=== PATIENT | female | born 1945 | race Caucasian/White ===

== ENCOUNTER → 2019-11-21 12:35 | Outpatient (BNVA) | payer MEDICARE, SELFPAY | PROVIDERS: Family Provider Family Medicine; PCP Family Medicine; Visit Provider Internal Medicine Cardiovascular Disease | DX: R53.83 Other fatigue (principal); Z79.01 Long term (current) use of anticoagulants; E78.5 Hyperlipidemia, unspecified; R06.02 Shortness of breath; I35.0 Nonrheumatic aortic (valve) stenosis; R07.9 Chest pain, unspecified; M79.89 Other specified soft tissue disorders; I10 Essential (primary) hypertension | CPT/HCPCS: 80053; 80061; 84443; 85025 ==

== ENCOUNTER 2019-12-07 08:06 | Outpatient (CLI) | payer MEDICARE, SELFPAY ==
--- NOTE | 2019-12-07 08:51 | ECG_ITS ---
NAME OF STUDY: LEXISCAN SESTAMIBI STRESS TEST INDICATION: Chest Pain, PROCEDURE: At the baseline, the EKG revealed sinus bradycardia with a normal ST-T's. The baseline blood pressure was 148/84 mm Hg with a heart rate of 57 beats/min. Lexiscan was infused over a period of 20 seconds. A total of 0.4 milligrams of Lexiscan was infused. The stress phase was continued for a total of 5 minutes. Heart rate at the end of the stress phase was 74 with a blood pressure 129/62. The EKG at the peak infusion revealed no significant changes. Sestamibi was injected 20 seconds after the Lexiscan infusion. Blood pressure at the end of the recovery phase was 127/58 with a heart rate of 71 per minute. CONCLUSION: 1. No significant EKG changes with the LexiScan infusion 2. No LexiScan induced chest pain or cardiac arrhythmia 3. Normal blood pressure and heart rate response 4. Sestamibi/sestamibi perfusion scan pending; see separate report. Electronically Signed On 12-07-2019 19:56:15 CDT by Kesha Hernandez M.D. [email or web address]
[2019-12-07 08:52] VITALS: BMI 30.7
--- NOTE | 2019-12-07 08:52 | NMCV_ITS ---
NM eleazar perf SPECT r/s* [id number] Rosa Reyes Age: 74 Gender: F : 1945 Exam Date: 12/07/2019 09:32 Ordering Phys: Kesha Hernandez MD ([email or web address]) Technologist: KIT Vail Exam Location: [facility] Indications: SOB STRESS TEST Please [facility] for [facility] IMAGE PROTOCOL Rest/Stress 1 Lexiscan Day Radiopharmaceutical Dose (mCi) Administration Site Administered by Rest: Tc-99m 10.7 IV KIT Vail Sestamibi Stress:Tc-99m 32.0 IV KIT Lorenzo Sestamibi Rest: 07-Dec-2019 60 Discovery 630 Stress: 07-Dec-2019 30 Discovery 630 0.4mg Lexiscan. Supine position only as patient was unable to lay prone. SPECT RESULTS Technical Quality: Excellent Raw Data Analysis: Normal Image Corrections: No attenuation or motion correction applied Summed Stress Score: 9 Summed Rest Score: 2 Summed Difference Score: 8 PERFUSION FINDINGS Small to moderate area of decreased asymmetry was noted in the mid and apical inferior, mid inferolateral, apical lateral and LV apex. Significant reversibility was noted in these regions. FUNCTIONAL RESULTS (calculated via Gated SPECT) Stress Image LV EF (%): 74 Stress EDV (mL):81 TID: 0.96 Stress ESV (mL):21 FUNCTIONAL FINDINGS: Segmental wall motion analysis revealed no gross wall motion normalities IMPRESSIONS 1. Myocardial perfusion imaging revealing a small to moderate area of decreased tracer uptake in the mid and apical inferior, mid inferolateral and apical lateral region, with significant reversibility, suggestive of myocardial ischemia in the distribution of the left circumflex artery/right coronary artery. 2. Normal LV ejection fraction 74%. 3. LV wall motion analysis revealing no gross wall motion normalities. 4. Normal LV volume. No similar previous studies are available for comparison Dr Kesha Hernandez MD FACC (Electronically Signed) Final Date: 07 Dec 2019 18:16 S
[2019-12-07] MEDS: regadenoson 0.4 Mg/5 ml Syringe IVP (10:15)
[2019-12-07 10:18] VITALS: BP 133/64; PULSE 79
--- NOTE | 2019-12-07 12:30 | USCV_ITS ---
Rosa Reyes Age: 74 Gender: F : 1945 Exam Date: 12/07/2019 09:03 Ordering Phys: Kesha Hernandez MD ([email or web address]) Technologist: Brittani Ku [place] [facility] [place]: [place] BP: / HR: 56 Rhythm: Sinus Technical Quality: Adequate MEASUREMENTS (Male / Female) Normal Values 2D ECHO LV Diastolic Diameter PLAX 4.5 cm 4.2 - 5.9 / 3.9 - 5.3 cm LV Systolic Diameter PLAX 3.1 cm LV Chamber Size 3.6 cm IVS Diastolic Thickness 1.4 cm 0.6 - 1.0 / 0.6 - 0.9 cm IVS Systolic Thickness 1.6 cm LVPW Diastolic Thickness 1.2 cm 0.6 - 1.0 / 0.6 - 0.9 cm LVPW Systolic Thickness 1.7 cm RV Chamber Size 2.4 cm LVOT Diameter 2.0 cm LV Ejection Fraction 2D Teich 60.5 % LV Ejection Fraction MOD 2C 75.7 % LV Ejection Fraction 2C AL 75.7 % LA Diameter 3.6 cm LA Width 3.1 cm LA Height 3.4 cm RA Width 3.2 cm RA Height 3.5 cm Aorta at Sinotubular Diameter 2.9 cm M-MODE LV Diastolic Diameter MM 5.4 cm 4.2 - 5.9 / 3.9 - 5.3 cm LV Systolic Diameter MM 3.5 cm LV Ejection Fraction MM Teich 64.7 % IVS Diastolic Thickness MM 0.9 cm 0.6 - 1.0 / 0.6 - 0.9 cm IVS Systolic Thickness MM 1.6 cm LVPW Diastolic Thickness MM 0.8 cm 0.6 - 1.0 / 0.6 - 0.9 cm LVPW Systolic Thickness MM 2.4 cm RV Diastolic Diameter MM 1.5 cm Aortic Annulus Diameter 3.6 cm LA Ao Ratio MM 1.0 MV E Point Septal Separation 0.7 cm DOPPLER AV Peak Velocity 136.0 cm/s LVOT Peak Velocity 59.0 cm/s AV Area Cont Eq vti 1.4 cm squared AV Area Cont Eq pk 1.4 cm squared MV Area PHT 5.4 cm squared Mitral E to A Ratio 0.9 MV E' Velocity 7.0 cm/s Mitral E to MV E' Ratio 8.9 Mitral E to LV E' Lateral Ratio 11.6 Mitral E to LV E' Septal Ratio 7.3 TR Peak Velocity 297.1 cm/s TR Peak Gradient 35.3 mmHg TR Mean Velocity 192.0 cm/s TR Mean Gradient 16.8 mmHg TR Velocity Time Integral 72.8 cm TV Peak E Velocity 60.0 cm/s Right Atrial Pressure 3.0 mmHg Pulmonary Artery Systolic Pressu 38.3 mmHg PV Peak Velocity 59.0 cm/s RV Acceleration Time 0.1 s RV Ejection Time 0.4 s RV AcT/ET 0.4 FINDINGS Left Ventricle Normal left ventricular size and systolic function, EF 67 %. No regional wall motion abnormalities.Grade I/IV diastolic dysfunction (abnormal relaxation filling pattern), normal to mildly elevated filling pressures. Right Ventricle Normal right ventricular size and systolic function. Right Atrium Normal right atrial size. Left Atrium Mildly increased left atrial size. Mitral Valve Thickened mitral valve. Mild mitral valve regurgitation. Aortic Valve Thickened aortic valve. Tricuspid Valve Mild tricuspid valve regurgitation. Pulmonic Valve Pulmonic valve not well visualized. Pericardium No pericardial or pleural effusion. Aorta Normal aortic annulus size. CONCLUSIONS Normal left ventricular size and systolic function, EF 67 %. No regional wall motion abnormalities. Mildly increased left atrial size. Thickened aortic and mitral valves. Mild mitral valve regurgitation. Mild tricuspid valve regurgitation. Estimated pulmonary artery peak systolic pressure is 38 mmHg There is no pericardial effusion. There are no intracardiac masses. Compared to the previous study from 08/26/2016, there may not be a significant Dr Kesha Hernandez MD FACC (Electronically Signed) Final Date: 07 Dec 2019 19:42 S
== END 2019-12-07 08:07 | disposition home or self-care (01) ==
LOC: RAD 08:12
PROVIDERS: PCP Family Medicine; Visit Provider Internal Medicine Cardiovascular Disease
DX: R06.02 Shortness of breath (principal); R01.1 Cardiac murmur, unspecified; I08.3 Combined rheumatic disorders of mitral, aortic and tricuspid valves
CPT/HCPCS: 78452; 93017; 93306; A9500; J2785

== ENCOUNTER 2020-02-01 15:11 | Outpatient (CLI) | payer MEDICARE, SELFPAY ==
--- NOTE | 2020-02-01 15:30 | MM_ITS ---
WS: [id number] DIAGNOSTIC LEFT DIGITAL MAMMOGRAM WITH CAD HISTORY: HX RT BR CA, LT UNILATERAL mammogram COMPARISON: 01/05/2019, 12/21/2017 and 12/19/2015 Technique: CC, MLO and ML views. Breast composition: There are scattered areas of fibroglandular density. Nodule inferior and medial to the nipple slightly lobulated and of increased density measures 14 mm and stable over multiple lorrie or years. No retraction of the nipple. Stable calcification posterior to the nipple. MM/[place] [id number] IMPRESSION: BI-RADS: 2-Benign FOLLOW UP: 1 Year Follow-up
--- NOTE | 2020-02-01 16:09 | XR_ITS ---
WS: [id number] SCREENING DEXA SCAN Fluo[employer]ric CLINICAL INFORMATION: DEXA COMPARISON: FINDINGS: The L1-L4 bone mineral density measures 1.074 g/cm2. This corresponds to a T score score of -0.9 and Z score of 0.3. Left femoral neck bone mineral density measures 0.921 g/cm2. This corresponds to a T score of -0.7 an d Z score of 0.6. Right femoral neck bone mineral density measures 0.856 g/cm2. This corresponds to a T score -1.2of an d Z score of 0.1. Mean femoral neck bone mineral density measures 0.889 g/cm2. This corresponds to a T score of -0.9 an d Z score of 0.3. XR/XR DEXA axial skeleton* [id number] IMPRESSION: Osteopenia Patient's FRAX calculated 10 year probability for major osteoporotic fracture i s 27.7 % and osteoporotic hip fracture is 16.0%.
== END 2020-02-01 15:12 | disposition home or self-care (01) ==
LOC: RADSHAW 15:18
PROVIDERS: PCP Family Medicine; Visit Provider Family Medicine
DX: Z78.0 Asymptomatic menopausal state; M85.88 Other specified disorders of bone density and structure, other site; Z85.3 Personal history of malignant neoplasm of breast
CPT/HCPCS: 77065; 77080

== ENCOUNTER 2020-09-07 13:14 | Emergency (ER) | payer MEDICARE, SELFPAY ==
[2020-09-07 13:34] VITALS: BP 154/100; PULSE 71; RESP 18; TEMP 36.5; O2SAT 97; BMI 31.6
[2020-09-07 13:45] VITALS: BP 201/86; PULSE 68; RESP 11; O2SAT 97
[2020-09-07 14:03] LABS: Glucose Point of Care 87 mg/dL (70-110)
[2020-09-07 14:12] VITALS: BP 201/86; PULSE 67; RESP 21; O2SAT 96
--- NOTE | 2020-09-07 14:28 | CTR_ITS ---
PROCEDURE INFORMATION: Exam: CT Head Without Contrast Exam date and time: 09/07/2020 2:31 PM Age: 75 years old Clinical indication: Altered mental status/memory loss. Confusion or disorientation. Worsening confusion and memory loss for 1 week. TECHNIQUE: Imaging protocol: Computed tomography of the head without contrast. Radiation optimization: All CT scans at this facility use at least one of these dose optimization techniques: automated exposure control; mA and/or kV adjustment per patient size (includes targeted exams where dose is matched to clinical indication); or iterative reconstruction. COMPARISON: CT head wo con* [id number] 08/19/2018 1:26 PM RADIATION DOSE METRICS: Total DLP (mGy-cm): 858.47 FINDINGS: Brain: No acute intracranial hemorrhage. No mass, mass effect or midline shift. There is no evidence of acute large vessel infarct. There is mild presumed small vessel ischemic disease of indeterminate age. The posterior fossa is grossly unremarkable; however, it is partially obscurred by beam hardening artifact. Cerebral ventricles: The ventricles are normal in configuration. Bones/joints: No acute fracture is seen. Paranasal sinuses: There are retention cysts or polyps in the right sphenoid and right ethmoid sinuses. Mastoid air cells: No mastoid effusion. Orbital cavity: The visualized orbits are unremarkable. CT/CT head wo con* [id number] IMPRESSION: 1. No acute intracranial abnormality. 2. Mild presumed small vessel ischemic disease of indeterminate age. Radiation Dose CTDIVOL = (mGy): DLP = 858.47 (mGy-cm)
--- NOTE | 2020-09-07 14:28 | XRR_ITS ---
PROCEDURE INFORMATION: Exam: XR Chest Exam date and time: 09/07/2020 2:29 PM Age: 75 years old Clinical indication: Altered mental status. Syncope. TECHNIQUE: Imaging protocol: XR of the chest Views: 1 view. COMPARISON: CR Chest 1 [place] [id number] 08/19/2018 1:02 PM FINDINGS: Lungs: No pulmonary consolidation. Pleural spaces: No pleural effusion. No pneumothorax. Heart/Mediastinum: The cardiac silhouette is unchanged. No gross evidence of pneumomediastinum. Bones/joints: No gross fracture. Probable ossified intra-articular body in the right glenohumeral joint. XR/XR chest 1V portable [id number] IMPRESSION: No acute cardiopulmonary abnormality identified.
--- NOTE | 2020-09-07 14:29 | ECG_ITS ---
[facility] Test Date: 2020-09-07 Pat Name: Rosa Reyes Department: Room: Gender: Female [employer] Risk Analytics Manager: : 1945 Requested By: Janeth Suazo Order Number: [id number] Noé MD: Joaquín Armas M.D. Measurements Intervals [place] Rate: 69 P: 48 AL: 152 QRS: -18 QRSD: 88 T: 20 QT: 390 QTc: 419 Interpretive Statements SINUS RHYTHM MODERATE VOLTAGE CRITERIA FOR LVH, CONSIDER NORMAL VARIANT [MEETS CRITERIA IN ONE OF: R(aVL), S(V1), R(V5), R(V5/V6)+S(V1)] Compared to ECG 08/19/2018 13:39:48 No significant changes Electronically Signed On 09-08-2020 17:11:10 CHIEF INFORMATION OFFICER by Joaquín Armas M.D. [id number]
[2020-09-07 14:54] LABS: Basophils % 0.4 %; Eosinophils % 0.6 %; Hematocrit 44.4 % (37.0-47.0); Hemoglobin 14.7 g/dL (11.5-15.3); Lymphocytes # 1.4 10^3/uL (0.8-4.8); Lymphocytes % 29.5 %; Mean Corpuscular HGB Conc 33.1 g/dL (30.0-36.0); Mean Corpuscular Hemoglobin 31.1 pg (28.0-34.0); Mean Corpuscular Volume 94.1 fL (81-99); Mean Platelet Volume 10.7 fL (7.4-10.4); Monocytes # 0.4 10^3/uL (0.2-0.9); Monocytes % 9.4 %; Neutrophils % 59.9 %; Nucleated Red Blood Cells % 0 %; Platelet Count 236 10^3/cmm (130-400); Red Blood Count 4.72 10^6/uL (4.1-5.3); Red Cell Distribution Width 13.3 % (12.1-15.1); White Blood Count 4.7 10^3/uL (4.0-10.0)
[2020-09-07 15:01] LABS: Troponin(5th) Baseline 12 ng/L (0-10)
--- NOTE | 2020-09-07 15:28 | W.ED.AMS ---
HPI - Altered Mental Status General: Chief Complaint: Altered Mental Status Stated Complaint: CONFUSION Time Seen by Provider: 09/07/20 14:40 Source: patient and family Mode of arrival: ambulatory Limitations: no limitations History of Present Illness: HPI narrative: 75-year-old female had an episode of chest chest pressure followed by nausea and vomiting several times this morning around 11 AM. No associated shortness of breath or palpitations she took 3 chewable aspirins at the onset of the chest pain. At 1 PM she had trouble remembering where one of her family members lived, even though it somewhere she goes frequently. Family members had to remind her of the address. Currently she is denying any such memory difficulties. No headache. No vision change, dizziness, focal weakness or numbness. No recent falls or head trauma. No history of stroke or heart attack. Her just under a year ago, and she has had a lot of stress this year, often has difficulty sleeping so she takes melatonin. Currently denying any chest pain, shortness of breath, nausea or vomiting. No history of similar symptoms in the past. MD complaint: confusion and weakness Associated symptoms: Reports depression Review of Systems General: Reports: 10 or more systems reviewed and unremarkable except in HPI and below Const: Denies: fever(s), chills, body aches, change in appetite or fatigue Eyes: Denies: change in vision, blurry vision or blind spots ENMT: Denies: odynophagia, dry mouth, change in hearing, tinnitus, disequilibrium or sinus pain Card: Reports: chest pain; Denies: palpitations, irregular heart rhythm, edema, swelling of feet/ankles, lightheadedness, syncope, dyspnea on exertion, orthopnea or leg pain with exertion Resp: Denies: dyspnea, productive cough, non-productive cough, wheezing or stridor GI: Reports: nausea and vomiting : Denies: difficulty voiding, dysuria or urinary frequency Musc: Denies: neck pain, back pain, extremity pain or extremity swelling Skin/Breast: Denies: rash, pruritus or erythema Neuro: Reports: confusion; Denies: headache(s), numbness in extremities, weakness in extremities, sensory changes, lack of coordination, difficulty walking, frequent falls, dizziness, vertigo, behavioral changes, Slurred speech present or difficulty communicating thoughts Psych: Reports: anxiety, depression, sleeping less and memory loss Endo: Denies: polyuria, polydipsia or tired all the time PFSH ED PFSH: Medical History Abnormal cardiovascular stress test Breast cancer Colon polyps Dyslipidemia (high LDL; low HDL) Endometriosis Fatigue Hypertension Mixed hyperlipidemia Osteopenia Shortness of breath on exertion EKG was done today. The EKG showed normal sinus rhythm with a normal ST-T's. Normal MI and QRS duration. Swelling of lower leg Vitamin D deficiency Surgical History H/O dilation and curettage H/O: hysterectomy S/P appendectomy S/P bilateral oophorectomy S/P right mastectomy S/P tonsillectomy and adenoidectomy Family History Mother Cancer COLON Social History Smoking and tobacco status: never smoked Alcohol intake: never Household members: spouse Marital status: Female Reproductive History: Para: 0 Spontaneous abortions: Yes Physical Exam Const: COMMON NORMALS: no acute distress, average body habitus, patient oriented x3, no limitations, healthy appearing and alert GENERAL APPEARANCE: cooperative, comfortable and well developed; not in distress, not anxious, not lethargic and not ill appearing ORIENTATION/CONSCIOUSNESS: Yes awake; not lethargic HENMT: COMMON NORMALS: normocephalic and atraumatic HEAD & SCALP: normocephalic and atraumatic FACE & SINUS: normal facial exam and face symmetric Eye: COMMON NORMALS: Equal, round and reactive pupils present, EOMs intact bilaterally, conjunctivae normal and no scleral icterus GENERAL EYE: appearance normal, both eyes and all related structures VISUAL ACUITY: Yes acuity normal ALIGNMENT: Yes alignment normal CONJUNCTIVA: Yes conjunctivae normal PUPIL: Yes Equal, round and reactive pupils present Resp: COMMON NORMALS: normal respiratory effort, No use of accessory muscles and clear to auscultation bilaterally EFFORT & INSPECTION: Yes able to speak in complete sentences AUSCULTATION: clear to auscultation bilaterally Neuro: COMMON NORMALS: patient oriented x3, moves all extremities, no focal motor deficits and no sensory deficits noted SENSORIUM/ORIENTATION: Yes alert and No lethargic CRANIAL NERVES: Yes CN normal except as noted SPEECH: speech normal GAIT: Yes Normal gait present Psych: COMMON NORMALS: mental status grossly normal, Normal thought process present, cooperative and normal affect THOUGHT PROCESS: Normal thought process present Skin: COMMON NORMALS: no rashes or lesions noted and no wounds GENERAL SKIN EXAM: no rashes or lesions noted Course Vital Signs: Vital signs: Vital Signs Temperature 98.9 F 09/07/20 17:49 Pulse Rate 69 09/07/20 17:49 Respiratory Rate 18 09/07/20 17:49 Blood Pressure 158/74 09/07/20 17:49 Pulse Oximetry 95 09/07/20 17:49 MDM - Altered Mental Status Differential Diagnosis: Differential diagnosis altered mental status: Likely alcoholic intoxication, altered mental status, delirium, dementia, hypoglycemia, hyponatremia, subarachnoid hemorrhage and sepsis Medical Records: Attestation: I reviewed the patient's medical records. Medical records narrative: 75-year-old female with transient episode of memory loss/confusion, now resolved. Lab work stable, serial troponins within normal limits. Chest x-ray normal, CT head negative for any acute abnormalities. Possibly stress-induced. Back to baseline at time of discharge. Follow-up promptly with PCP to discuss any further testing that needs to be done. Get plenty of rest, she will be staying with family tonight. Instructed to return immediately if she had any recurrent symptoms, vision changes, headache, dizziness, speech problems etc. Lab Data: Attestation: I reviewed the patient's lab results. Labs: Lab Results 09/07/20 09/07/20 09/07/20 Range/Units 13:56 13:56 14:00 WBC (4.0-10.0) 10^3/ uL RBC (4.1-5.3) 10^6/u L Hgb (11.5-15.3) g/dL Hct (37.0-47.0) % MCV (81-99) fL MCH (28.0-34.0) pg MCHC (30.0-36.0) g/dL RDW (12.1-15.1) % Plt Count (130-400) 10^3/c mm MPV (7.4-10.4) fL Neut % (Auto) % Lymph % (Auto) % Howard % (Auto) % Eos % (Auto) % Baso % (Auto) % Neut # (Auto) (1.8-7.7) 10^3/u L Lymph # (Auto) (0.8-4.8) 10^3/u L Howard # (Auto) (0.2-0.9) 10^3/u L Eos # (Auto) (0.0-0.8) 10^3/u L Baso # (Auto) (0.0-0.1) 10^3/u L Nucleated RBC % (a uto) % Nucleated RBCs # /100WBC Sodium (136-145) mmol/L Potassium (3.5-5.1) mmol/L Chloride (98-107) mmol/L Carbon Dioxide (22-29) mmol/L Anion Gap (5-19) BUN (8-23) mg/dL Creatinine (0.5-0.9) mg/dL GFR Calculation Glucose (65-115) mg/dL POC Glucose 87 (70-110) mg/dL Calculated Osmolal ity (285-295) mOsm/k g Calcium (8.5-10.5) mg/dL Total Bilirubin (0.15-1.2) mg/dL AST (0-32) U/L ALT (0-33) U/L Alkaline Phosphata se (35-105) IU/L Troponin T Baselin e (0-10) ng/L Troponin T 120 Min [place] (0-10) ng/L Delta Troponin T (0-10) ABS# Total Protein (6.6-8.7) g/dL Albumin (3.5-5.2) g/dL Globulin (1.3-4.6) g/dL Urine Color Straw (Yellow) Urine Appearance Clear (CLEAR) Urine pH 5 (5-7) Ur Specific Gravit y 1.015 (1.005-1.030) Urine Protein Neg (Negative) Urine Glucose (UA) Norm (Normal) Urine Ketones Negative (Negative) Urine Blood Neg (Negative) Urine Nitrate Negative (Negative) Urine Bilirubin Neg (Negative) Urine Urobilinogen Norm (Negative) mg/dL Ur Leukocyte Evelyn ase Negative (Negative) Urine Opiates Scre en Negative (Negative) ng/mL Ur Barbiturates Sc reen Negative (Negative) ng/mL Ur Phencyclidine S crn Negative (Negative) ng/mL Ur Amphetamines Sc reen Negative (Negative) ng/mL U Benzodiazepines Scrn Negative (Negative) ng/mL Urine Cocaine Scre en Negative (Negative) ng/mL U Marijuana (THC) Screen Negative (Negative) ng/mL 09/07/20 09/07/20 09/07/20 Range/Units 14:07 14:07 14:07 WBC 4.7 (4.0-10.0) 10^3/ uL RBC 4.72 (4.1-5.3) 10^6/u L Hgb 14.7 (11.5-15.3) g/dL Hct 44.4 (37.0-47.0) % MCV 94.1 (81-99) fL MCH 31.1 (28.0-34.0) pg MCHC 33.1 (30.0-36.0) g/dL RDW 13.3 (12.1-15.1) % Plt Count 236 (130-400) 10^3/c mm MPV 10.7 H (7.4-10.4) fL Neut % (Auto) 59.9 % Lymph % (Auto) 29.5 % Howard % (Auto) 9.4 % Eos % (Auto) 0.6 % Baso % (Auto) 0.4 % Neut # (Auto) 2.80 (1.8-7.7) 10^3/u L Lymph # (Auto) 1.4 (0.8-4.8) 10^3/u L Howard # (Auto) 0.4 (0.2-0.9) 10^3/u L Eos # (Auto) 0.0 (0.0-0.8) 10^3/u L Baso # (Auto) 0.0 (0.0-0.1) 10^3/u L Nucleated RBC % (a uto) 0 % Nucleated RBCs # 0.0 /100WBC Sodium 138 (136-145) mmol/L Potassium 4.2 (3.5-5.1) mmol/L Chloride 103 (98-107) mmol/L Carbon Dioxide 24 (22-29) mmol/L Anion Gap 15.2 (5-19) BUN 22 (8-23) mg/dL Creatinine 0.7 (0.5-0.9) mg/dL GFR Calculation Not Reportable Glucose 88 (65-115) mg/dL POC Glucose (70-110) mg/dL Calculated Osmolal ity 289 (285-295) mOsm/k g Calcium 9.4 (8.5-10.5) mg/dL Total Bilirubin 0.6 (0.15-1.2) mg/dL AST 20 (0-32) U/L ALT 25 (0-33) U/L Alkaline Phosphata se 61 (35-105) IU/L Troponin T Baselin e 12 H (0-10) ng/L Troponin T 120 Min [place] (0-10) ng/L Delta Troponin T (0-10) ABS# Total Protein 7.4 (6.6-8.7) g/dL Albumin 4.3 (3.5-5.2) g/dL Globulin 3.1 (1.3-4.6) g/dL Urine Color (Yellow) Urine Appearance (CLEAR) Urine pH (5-7) Ur Specific Gravit y (1.005-1.030) Urine Protein (Negative) Urine Glucose (UA) (Normal) Urine Ketones (Negative) Urine Blood (Negative) Urine Nitrate (Negative) Urine Bilirubin (Negative) Urine Urobilinogen (Negative) mg/dL Ur Leukocyte Evelyn ase (Negative) Urine Opiates Scre en (Negative) ng/mL Ur Barbiturates Sc reen (Negative) ng/mL Ur Phencyclidine S crn (Negative) ng/mL Ur Amphetamines Sc reen (Negative) ng/mL U Benzodiazepines Scrn (Negative) ng/mL Urine Cocaine Scre en (Negative) ng/mL U Marijuana (THC) Screen (Negative) ng/mL 09/07/20 Range/Units 16:13 WBC (4.0-10.0) 10^3/ uL RBC (4.1-5.3) 10^6/u L Hgb (11.5-15.3) g/dL Hct (37.0-47.0) % MCV (81-99) fL MCH (28.0-34.0) pg MCHC (30.0-36.0) g/dL RDW (12.1-15.1) % Plt Count (130-400) 10^3/c mm MPV (7.4-10.4) fL Neut % (Auto) % Lymph % (Auto) % Howard % (Auto) % Eos % (Auto) % Baso % (Auto) % Neut # (Auto) (1.8-7.7) 10^3/u L Lymph # (Auto) (0.8-4.8) 10^3/u L Howard # (Auto) (0.2-0.9) 10^3/u L Eos # (Auto) (0.0-0.8) 10^3/u L Baso # (Auto) (0.0-0.1) 10^3/u L Nucleated RBC % (a uto) % Nucleated RBCs # /100WBC Sodium (136-145) mmol/L Potassium (3.5-5.1) mmol/L Chloride (98-107) mmol/L Carbon Dioxide (22-29) mmol/L Anion Gap (5-19) BUN (8-23) mg/dL Creatinine (0.5-0.9) mg/dL GFR Calculation Glucose (65-115) mg/dL POC Glucose (70-110) mg/dL Calculated Osmolal ity (285-295) mOsm/k g Calcium (8.5-10.5) mg/dL Total Bilirubin (0.15-1.2) mg/dL AST (0-32) U/L ALT (0-33) U/L Alkaline Phosphata se (35-105) IU/L Troponin T Baselin e (0-10) ng/L Troponin T 120 Min [place] 11.52 H (0-10) ng/L Delta Troponin T -0.48 L (0-10) ABS# Total Protein (6.6-8.7) g/dL Albumin (3.5-5.2) g/dL Globulin (1.3-4.6) g/dL Urine Color (Yellow) Urine Appearance (CLEAR) Urine pH (5-7) Ur Specific Gravit y (1.005-1.030) Urine Protein (Negative) Urine Glucose (UA) (Normal) Urine Ketones (Negative) Urine Blood (Negative) Urine Nitrate (Negative) Urine Bilirubin (Negative) Urine Urobilinogen (Negative) mg/dL Ur Leukocyte Evelyn ase (Negative) Urine Opiates Scre en (Negative) ng/mL Ur Barbiturates Sc reen (Negative) ng/mL Ur Phencyclidine S crn (Negative) ng/mL Ur Amphetamines Sc reen (Negative) ng/mL U Benzodiazepines Scrn (Negative) ng/mL Urine Cocaine Scre en (Negative) ng/mL U Marijuana (THC) Screen (Negative) ng/mL Discharge Plan Discharge Clinical Impression: Memory change, Episode of confusion, Chest pain not due to acute coronary syndrome, Hx of nausea and vomiting Condition: Stable Prescriptions: No Action vitamin E (dl, acetate) 100 unit capsule 100 unit PO DAILY@1100 RF: 0 cholecalciferol (vitamin D3) 2,000 unit tablet 2,000 unit PO DAILY@1100 RF: 0 B Complex Plus Vitamin C 29-82-39-5-300 mg capsule 1 cap PO DAILY@1100 RF: 0 red yeast rice 600 mg capsule 600 mg PO BID RF: 0 multivitamin Tablet 1 tab PO DAILY@1100 RF: 0 aspirin [Adult Low Dose Aspirin] 81 mg tablet,delayed release (DR/EC) 81 mg PO DAILY@1100 RF: 0 nitroglycerin 0.4 mg tablet, sublingual 0.4 mg SUBLINGUAL Q5M PRN (Reason: chest pain) 30 Days Qty: 30 RF: 3 Fluarix Quad (PF) 60 mcg (15 mcg x 4)/0.5 mL syringe 0.5 ml IM ONCE Qty: 0.5 RF: 0 Mineral Complex 1 tab PO DAILY@1100 RF: 0 niacin 1 tab PO DAILY@1100 RF: 0 melatonin 1 mg Tablet 1 mg PO BEDTIME RF: 0 CoQ-10 See Rx Instructions .ROUTE .COMPLEX RF: 0 Silver [place] See Rx Instructions .ROUTE .COMPLEX RF: 0 Referrals: Keyonna Canchola DO [Primary Care Provider] - Discharge Diet: Advance as tolerated Discharge Activity: Resume usual activity Patient Instructions: Confusion, Noncardiac Chest Pain (ED) Activity Restrictions/Additional Instructions: Call to schedule follow-up appointment with your primary care doctor in the next 3 days for reexamination, and to discuss any further testing that might be necessary. Make sure to get plenty of rest and drink enough fluids. Return immediately to the ER if you have recurrent episodes of confusion, difficulty walking, headache, vision changes, fever, chest pain, difficulty breathing, recurrent nausea and vomiting, or any other concerning symptoms. Coding Level of Care Code ED Beef Trimmer for Jose Elkins
[2020-09-07 15:35] LABS: Add Urine Microscopic? NO
[2020-09-07 15:37] LABS: Urine Color Straw (Yellow)
[2020-09-07 15:38] LABS: Bilirubin Urine Neg (Negative); Blood Urine Neg (Negative); Glucose Urine UA Norm (Normal); Ketones Urine Negative (Negative); Leukocyte Esterase Urine Negative (Negative); Nitrate Urine Negative (Negative); Protein Urine Neg (Negative); Specific Gravity, Urine 1.015 (1.005-1.030); Urine Appearance Clear (CLEAR); Urobilinogen Urine Norm (Negative); pH Urine 5 (5-7)
[2020-09-07 15:47] LABS: Alanine Aminotransferase 25 U/L (0-33); Albumin Level 4.3 g/dL (3.5-5.2); Alkaline Phosphatase 61 IU/L (35-105); Anion Gap 15.2 (5-19); Aspartate Amino Transferase 20 U/L (0-32); Blood Urea Nitrogen 22 mg/dL (8-23); Calcium 9.4 mg/dL (8.5-10.5); Carbon Dioxide 24 mmol/L (22-29); Chloride 103 mmol/L (98-107); Globulin 3.1 g/dL (1.3-4.6); Glucose 88 mg/dL (65-115); Osmolality Calculated 289 mOsm/kg (285-295); Potassium 4.2 mmol/L (3.5-5.1); Sodium 138 mmol/L (136-145); Total Bilirubin 0.6 mg/dL (0.15-1.2); Total Protein 7.4 g/dL (6.6-8.7)
[2020-09-07 15:55] LABS: Amphetamines Screen Urine Negative (Negative); Barbiturates Screen Urine Negative (Negative); Benzodiazepines Screen Urine Negative (Negative); Cocaine Screen Urine Negative (Negative); Opiate Screen Urine Negative (Negative); PCP Screen Urine Negative (Negative); THC Screen Urine Negative (Negative)
[2020-09-07 16:19] VITALS: BP 139/76; PULSE 64; RESP 18; O2SAT 98
--- NOTE | 2020-09-07 16:29 | ECG_ITS ---
[facility] Test Date: 2020-09-07 Pat Name: Rosa Reyes Department: Room: Gender: Female Retail Cashier Associate: : 1945 Requested By: Janeth Suazo Order Number: [id number] Noé MD: Joaquín Armas M.D. Measurements Intervals [place] Rate: 59 P: 42 [place]: 163 QRS: -18 QRSD: 93 T: 20 QT: 411 QTc: 408 Interpretive Statements SINUS BRADYCARDIA VOLTAGE CRITERIA FOR LVH [MEETS CRITERIA IN ONE OF: R(aVL), S(V1), R(V5), R(V5/V6)+S(V1)] Compared to ECG 09/07/2020 14:46:50 Sinus rhythm no longer present Electronically Signed On 09-09-2020 19:04:14 SOLE STAPLER WELT by Joaquín Armas M.D. [id number]
[2020-09-07 16:45] LABS: Troponin 5 2HR 11.52 ng/L (0-10)
[2020-09-07 16:46] LABS: Troponin 5 2HR Delta -0.48 ABS# (0-10)
[2020-09-07 17:49] VITALS: BP 158/74; PULSE 69; RESP 18; TEMP 37.2; O2SAT 95
== END 2020-09-07 18:29 ==
PROVIDERS: Nurse Practitioner Family; Emergency Provider Family Medicine; PCP Family Medicine
DX: R41.0 Disorientation, unspecified (principal); R07.9 Chest pain, unspecified; Z79.82 Long term (current) use of aspirin; Z85.3 Personal history of malignant neoplasm of breast; I10 Essential (primary) hypertension; E78.2 Mixed hyperlipidemia
CPT/HCPCS: 36415; 36416; 70450; 71045; 80053; 80306; 81003; 82962; 84484; 85025; 93005; 99283

== ENCOUNTER 2021-02-13 12:43 | Emergency (ER) | payer MEDICARE, SELFPAY ==
--- NOTE | 2021-02-13 13:25 | ECG_ITS ---
[facility] Test Date: 2021-02-13 Pat Name: Rosa Reyes Department: Room: Gender: Female Director Of Teaching And Learning: : 1945 Requested By: Martínez Aparicio Order Number: [id number] Umanzor MD: Joaquín Armas M.D. Measurements Intervals [place] Rate: 60 P: 40 AR: 167 QRS: -11 QRSD: 100 T: 26 QT: 394 QTc: 395 Interpretive Statements SINUS RHYTHM VOLTAGE CRITERIA FOR LVH [MEETS CRITERIA IN ONE OF: R(aVL), S(V1), R(V5), R(V5/V6)+S(V1)] Compared to ECG 02/13/2021 15:46:47 Sinus bradycardia no longer present Electronically Signed On 02-13-2021 23:01:28 CDT by Joaquín Armas M.D. [id number]
[2021-02-13 13:42] VITALS: BP 192/79; RESP 16; TEMP 36.6; O2SAT 94; BMI 32.1
--- NOTE | 2021-02-13 15:25 | ECG_ITS ---
[facility] ED Test Date: 2021-02-13 Pat Name: Rosa Reyes Department: Room: Gender: Female Hand Funnel Coater: : 1945 Requested By: Martínez Aparicio Order Number: [id number] Umanzor MD: Precious Barbour M.D. Measurements Intervals [place] Rate: 58 P: 56 [place]: 168 QRS: -22 QRSD: 102 T: 23 QT: 407 QTc: 402 Interpretive Statements SINUS BRADYCARDIA BORDERLINE LEFT AXIS DEVIATION [QRS AXIS < -20] LOW QRS VOLTAGE IN PRECORDIAL LEADS [QRS DEFLECTION < 1.0 mV IN CHEST LEADS] PATTERN CONSISTENT WITH PULMONARY DISEASE MODERATE VOLTAGE CRITERIA FOR LVH, CONSIDER NORMAL VARIANT [MEETS CRITERIA IN ONE OF: R(aVL), S(V1), R(V5), R(V5/V6)+S(V1)] Compared to ECG 02/13/2021 15:11:15 Sinus rhythm no longer present ST (T wave) deviation no longer present Electronically Signed On 02-14-2021 16:47:55 CDT by Precious Barbour M.D. [id number]
[2021-02-13 17:29] LABS: Basophils # 0.1 10^3/uL (0.0-0.1); Basophils % 0.7 %; Eosinophils % 0.4 %; Hematocrit 49.1 % (37.0-47.0); Hemoglobin 14.9 g/dL (11.5-15.3); Lymphocytes # 2.3 10^3/uL (0.8-4.8); Lymphocytes % 33.1 %; Mean Corpuscular HGB Conc 30.3 g/dL (30.0-36.0); Mean Corpuscular Hemoglobin 29.8 pg (28.0-34.0); Mean Corpuscular Volume 98.2 fL (81-99); Mean Platelet Volume 10.6 fL (7.4-10.4); Monocytes # 0.6 10^3/uL (0.2-0.9); Neutrophils # 4.05 10^3/uL (1.8-7.7); Neutrophils % 57.7 %; Nucleated Red Blood Cells % 0 %; Platelet Count 183 10^3/cmm (130-400); Red Cell Distribution Width 14.4 % (12.1-15.1)
[2021-02-13 17:52] LABS: Troponin(5th) Baseline 8 ng/L (0-10)
[2021-02-13 17:58] LABS: Alanine Aminotransferase 29 U/L (0-33); Albumin Level 4.4 g/dL (3.5-5.2); Alkaline Phosphatase 67 IU/L (35-105); Anion Gap 14.2 (5-19); Blood Urea Nitrogen 16 mg/dL (8-23); Calcium 8.8 mg/dL (8.5-10.5); Carbon Dioxide 25 mmol/L (22-29); Chloride 101 mmol/L (98-107); Globulin 2.9 g/dL (1.3-4.6); Glucose 79 mg/dL (65-115); Lipase 21 U/L (13-60); Osmolality Calculated 282 mOsm/kg (285-295); Potassium 4.2 mmol/L (3.5-5.1); Sodium 136 mmol/L (136-145); Total Bilirubin 0.7 mg/dL (0.15-1.2); Total Protein 7.3 g/dL (6.6-8.7)
[2021-02-13 17:59] LABS: Aspartate Amino Transferase 27 U/L (0-32)
--- NOTE | 2021-02-13 19:25 | ECG_ITS ---
[facility] ED Test Date: 2021-02-13 Pat Name: Rosa Reyes Department: Room: Gender: Female Counter Cutter: : 1945 Requested By: Martínez Aparicio Order Number: [id number] Umanzor MD: Precious Barbour M.D. Measurements Intervals [place] Rate: 60 P: 48 [place]: 157 QRS: -19 QRSD: 98 T: 31 QT: 393 QTc: 394 Interpretive Statements SINUS RHYTHM LOW QRS VOLTAGE IN PRECORDIAL LEADS [QRS DEFLECTION < 1.0 mV IN CHEST LEADS] PATTERN CONSISTENT WITH PULMONARY DISEASE LEFT VENTRICULAR HYPERTROPHY AND ST-T CHANGE [VOLTAGE CRITERIA PLUS ST/T ABNORMALITY] Compared to ECG 09/07/2020 16:30:02 Low QRS voltage now present ST (T wave) deviation now present Sinus bradycardia no longer present Electronically Signed On 02-14-2021 16:48:14 CDT by Precious Barbour M.D. [id number]
[2021-02-13 20:23] VITALS: BP 191/71; PULSE 66; RESP 18; O2SAT 99
--- NOTE | 2021-02-13 20:23 | CTR_ITS ---
PROCEDURE INFORMATION: Exam: CT Head Without Contrast Exam date and time: 02/13/2021 8:23 PM Age: 75 years old Clinical indication: Patient HX: Dizziness with nausea. ; Additional info: Confusion TECHNIQUE: Imaging protocol: Computed tomography of the head without contrast. Radiation optimization: All CT scans at this facility use at least one of these dose optimization techniques: automated exposure control; mA and/or kV adjustment per patient size (includes targeted exams where dose is matched to clinical indication); or iterative reconstruction. COMPARISON: CT head wo con* [id number] 09/07/2020 2:53 PM RADIATION DOSE METRICS: Total DLP (mGy-cm): 866.82 FINDINGS: Brain: Normal. No hemorrhage. Unremarkable white matter. No mass effect. Cerebral ventricles: No ventriculomegaly. Paranasal sinuses: Visualized sinuses are unremarkable. No fluid levels. Mastoid air cells: Visualized mastoid air cells are well aerated. Bones/joints: Unremarkable. No acute fracture. Soft tissues: Unremarkable. CT/CT head wo con* [id number] IMPRESSION: No acute intracranial abnormality. Radiation Dose CTDIVOL = (mGy): DLP = 866.82 (mGy-cm)
[2021-02-13] MEDS: sodium chloride 0.9% 1,000 ML 999 ML IV (20:37)
[2021-02-13 21:02] LABS: Troponin 5 2HR 7.59 ng/L (0-10)
[2021-02-13 21:03] LABS: Troponin 5 2HR Delta -0.41 ABS# (0-10)
[2021-02-13 21:12] VITALS: PULSE 74; RESP 18; O2SAT 97
[2021-02-13 21:28] LABS: Bilirubin Urine Neg (Negative); Blood Urine Neg (Negative); Glucose Urine UA Norm (Normal); Ketones Urine 1+ (Negative); Leukocyte Esterase Urine Negative (Negative); Nitrate Urine Negative (Negative); Protein Urine Neg (Negative); Specific Gravity, Urine 1.015 (1.005-1.030); Urine Appearance Clear (CLEAR); Urine Color Yellow (Yellow); Urobilinogen Urine Norm (Negative); pH Urine 5 (5-7)
[2021-02-13 21:29] LABS: Add Urine Culture? No; Bacteria Urine TRACE /hpf; RBC Urine 0-4 /hpf (0-2); Squamous Epithelial Cell Urine 0-4 /hpf (0-5); WBC Urine 0-4 /hpf (0-5)
--- NOTE | 2021-02-13 21:52 | ED_ITS ---
HPI - Nausea/Vomiting/Diarrhea General: Chief complaint: Nausea/Vomiting/Diarrhea Stated complaint: NAUSEA, FEELS LIKE GOING TO GO DOWN , SNEEZING Time Seen by Provider: 02/13/21 20:17 Source: patient Mode of arrival: ambulatory Limitations: no limitations History of Present Illness: HPI Narrative: 75-year-old female states she felt very nauseous this morning after eating breakfast and states she felt odd. She states that her head just felt fuzzy. She had an similar episode months ago. Denies any worsening improving factors. States she feels much improved currently. Denies any vomiting. Denies headache. Denies chest pain. Associated nausea: Yes Associated symtoms: Reports nausea; Denies chest pain, dysuria or headache(s) Review of Systems Const: Denies: fever(s), chills, body aches or change in appetite Eyes: Denies: blurry vision or eye discomfort ENMT: Denies: throat pain or dental pain Card: Denies: chest pain Resp: Denies: dyspnea GI: Reports: nausea and vomiting : Denies: dysuria Musc: Denies: neck pain or back pain Skin/Breast: Denies: rash Neuro: Denies: headache(s) Psych: Denies: depression Karl/Lymph: Denies: easy bruising All/Imm: Denies: urticaria PFSH ED PFSH: Medical History (Updated 02/13/21 @ 22:24 by Keaton Mooney MD) Abnormal cardiovascular stress test Breast cancer Colon polyps Dyslipidemia (high LDL; low HDL) Endometriosis Fatigue Hypertension Mixed hyperlipidemia Osteopenia Shortness of breath on exertion EKG was done today. The EKG showed normal sinus rhythm with a normal ST-T's. Normal NE and QRS duration. Swelling of lower leg Vitamin D deficiency Surgical History H/O dilation and curettage H/O: hysterectomy S/P appendectomy S/P bilateral oophorectomy S/P right mastectomy S/P tonsillectomy and adenoidectomy Family History Mother Cancer COLON CAD (coronary artery disease) Denies family history of Diabetes Clotting disorder Dementia Chronic kidney disease (CKD) Suicide Anesthesia complication Bleeding disorder Lung disease Stroke Social History Smoking and tobacco status: never smoked Alcohol intake: never Household members: spouse Marital status: Female Reproductive History: Para: 0 Spontaneous abortions: Yes Course Vital Signs: Vital signs: Vital Signs Temperature 97.9 F 02/13/21 13:42 Pulse Rate 64 02/13/21 22:11 Respiratory Rate 18 02/13/21 21:12 Blood Pressure 179/92 02/13/21 22:11 Pulse Oximetry 97 02/13/21 22:11 MDM - Nausea/Vomiting/Diarrhea MDM Narrative: Medical decision making narrative: Patient presents here with nausea since resolved. She had some slight confusion earlier that since resolved as well and a head CT here is normal. She has no signs of a stroke. She is stable for discharge will prescribe her Zofran for home. She is return if worsening. Lab Data: Labs: Lab Results 02/13/21 02/13/21 02/13/21 Range/Units 16:58 16:58 16:58 WBC 7.0 (4.0-10.0) 10^3/ uL RBC 5.00 (4.1-5.3) 10^6/u L Hgb 14.9 (11.5-15.3) g/dL Hct 49.1 H (37.0-47.0) % MCV 98.2 (81-99) fL MCH 29.8 (28.0-34.0) pg MCHC 30.3 (30.0-36.0) g/dL RDW 14.4 (12.1-15.1) % Plt Count 183 (130-400) 10^3/c mm MPV 10.6 H (7.4-10.4) fL Neut % (Auto) 57.7 % Lymph % (Auto) 33.1 % [place] % (Auto) 8.0 % Eos % (Auto) 0.4 % Baso % (Auto) 0.7 % Neut # (Auto) 4.05 (1.8-7.7) 10^3/u L Lymph # (Auto) 2.3 (0.8-4.8) 10^3/u L [place] # (Auto) 0.6 (0.2-0.9) 10^3/u L Eos # (Auto) 0.0 (0.0-0.8) 10^3/u L Baso # (Auto) 0.1 (0.0-0.1) 10^3/u L Nucleated RBC % (a uto) 0 % Nucleated RBCs # 0.0 /100WBC Sodium 136 (136-145) mmol/L Potassium 4.2 (3.5-5.1) mmol/L Chloride 101 (98-107) mmol/L Carbon Dioxide 25 (22-29) mmol/L Anion Gap 14.2 (5-19) BUN 16 (8-23) mg/dL Creatinine 0.5 (0.5-0.9) mg/dL GFR Calculation Not Reportable Glucose 79 (65-115) mg/dL Calculated Osmolal ity 282 L (285-295) mOsm/k g Calcium 8.8 (8.5-10.5) mg/dL Total Bilirubin 0.7 (0.15-1.2) mg/dL AST 27 (0-32) U/L ALT 29 (0-33) U/L Alkaline Phosphata se 67 (35-105) IU/L Troponin T Baselin e 8 (0-10) ng/L Troponin T 120 Min [place] (0-10) ng/L Delta Troponin T (0-10) ABS# Total Protein 7.3 (6.6-8.7) g/dL Albumin 4.4 (3.5-5.2) g/dL Globulin 2.9 (1.3-4.6) g/dL Lipase 21 (13-60) U/L Urine Color (Yellow) Urine Appearance (CLEAR) Urine pH (5-7) Ur Specific Gravit y (1.005-1.030) Urine Protein (Negative) Urine Glucose (UA) (Normal) Urine Ketones (Negative) Urine Blood (Negative) Urine Nitrate (Negative) Urine Bilirubin (Negative) Urine Urobilinogen (Negative) mg/dL Ur Leukocyte Evelyn ase (Negative) Urine RBC (0-2) /hpf Urine WBC (0-5) /hpf Ur Squamous Epith Cells (0-5) /hpf Amorphous Sediment Urine Bacteria (NONE) /hpf 02/13/21 02/13/21 Range/Units 19:47 21:13 WBC (4.0-10.0) 10^3/ uL RBC (4.1-5.3) 10^6/u L Hgb (11.5-15.3) g/dL Hct (37.0-47.0) % MCV (81-99) fL MCH (28.0-34.0) pg MCHC (30.0-36.0) g/dL RDW (12.1-15.1) % Plt Count (130-400) 10^3/c mm MPV (7.4-10.4) fL Neut % (Auto) % Lymph % (Auto) % [place] % (Auto) % Eos % (Auto) % Baso % (Auto) % Neut # (Auto) (1.8-7.7) 10^3/u L Lymph # (Auto) (0.8-4.8) 10^3/u L [place] # (Auto) (0.2-0.9) 10^3/u L Eos # (Auto) (0.0-0.8) 10^3/u L Baso # (Auto) (0.0-0.1) 10^3/u L Nucleated RBC % (a uto) % Nucleated RBCs # /100WBC Sodium (136-145) mmol/L Potassium (3.5-5.1) mmol/L Chloride (98-107) mmol/L Carbon Dioxide (22-29) mmol/L Anion Gap (5-19) BUN (8-23) mg/dL Creatinine (0.5-0.9) mg/dL GFR Calculation Glucose (65-115) mg/dL Calculated Osmolal ity (285-295) mOsm/k g Calcium (8.5-10.5) mg/dL Total Bilirubin (0.15-1.2) mg/dL AST (0-32) U/L ALT (0-33) U/L Alkaline Phosphata se (35-105) IU/L Troponin T Baselin e (0-10) ng/L Troponin T 120 Min [place] 7.59 (0-10) ng/L Delta Troponin T -0.41 L (0-10) ABS# Total Protein (6.6-8.7) g/dL Albumin (3.5-5.2) g/dL Globulin (1.3-4.6) g/dL Lipase (13-60) U/L Urine Color Yellow (Yellow) Urine Appearance Clear (CLEAR) Urine pH 5 (5-7) Ur Specific Gravit y 1.015 (1.005-1.030) Urine Protein Neg (Negative) Urine Glucose (UA) Norm (Normal) Urine Ketones 1+ H (Negative) Urine Blood Neg (Negative) Urine Nitrate Negative (Negative) Urine Bilirubin Neg (Negative) Urine Urobilinogen Norm (Negative) mg/dL Ur Leukocyte Evelyn ase Negative (Negative) Urine RBC 0-4 H (0-2) /hpf Urine WBC 0-4 H (0-5) /hpf Ur Squamous Epith Cells 0-4 H (0-5) /hpf Amorphous Sediment Not Reportable Urine Bacteria Trace (NONE) /hpf Imaging Data^: CT Head: Attestation: I personally reviewed and interpreted this imaging study as follows: Radiologist's impression: [employer] [address] [address] [address] Scan Report Signed Patient: oRsa Reyes Unit #: [id number] : 1945 Age/Sex: 75 / F ADM Date: 02/13/21 Loc: ER Room/Bed: Attending Dr: Ordering Provider/Ordering MD: Keaton Mooney MD Date of Service: 02/13/21 Procedure(s): CT head wo con* [id number] Accession Number(s): [id number] Report Number: [id number] PROCEDURE INFORMATION: Exam: CT Head Without Contrast Exam date and time: 02/13/2021 8:23 PM Age: 75 years old Clinical indication: Patient HX: Dizziness with nausea. ; Additional info: Confusion TECHNIQUE: Imaging protocol: Computed tomography of the head without contrast. Radiation optimization: All CT scans at this facility use at least one of these dose optimization techniques: automated exposure control; mA and/or kV adjustment per patient size (includes targeted exams where dose is matched to clinical indication); or iterative reconstruction. COMPARISON: CT head wo con* [id number] 09/07/2020 2:53 PM RADIATION DOSE METRICS: Total DLP (mGy-cm): 866.82 FINDINGS: Brain: Normal. No hemorrhage. Unremarkable white matter. No mass effect. Cerebral ventricles: No ventriculomegaly. Paranasal sinuses: Visualized sinuses are unremarkable. No fluid levels. Mastoid air cells: Visualized mastoid air cells are well aerated. Bones/joints: Unremarkable. No acute fracture. Soft tissues: Unremarkable. CT/CT head wo con* [id number] IMPRESSION: No acute intracranial abnormality. Radiation Dose CTDIVOL = (mGy): DLP = 866.82 (mGy-cm) Dictated By: Jaycob Montez DO Signed By: Jaycob Montez DO Signed Date/Time: 02/13/212125 DD/ 24 EKG Data^: EKG 1: Attestation: I personally reviewed and interpreted this EKG as follows: EKG interpretation date: 02/13/21 EKG interpretation time: 20:29 Interpretation: nsr hr [address] or t wave abnormalities qrs 100 qtc 395 Discharge Plan Discharge Patient Disposition: Home Clinical Impression: Nausea Condition: Stable Prescriptions: New ondansetron 4 mg tablet,disintegrating 4 mg PO Q6H PRN (Reason: nausea and vomiting) Qty: 14 RF: 0 No Action vitamin E (dl, acetate) 100 unit capsule 100 unit PO DAILY@1100 RF: 0 cholecalciferol (vitamin D3) 2,000 unit tablet 2,000 unit PO DAILY@1100 RF: 0 B Complex Plus Vitamin C 66-22-87-5-300 mg capsule 1 cap PO DAILY@1100 RF: 0 multivitamin Tablet 1 tab PO DAILY@1100 RF: 0 red yeast rice 600 mg capsule 1,200 mg PO DAILY RF: 0 aspirin [Adult Low Dose Aspirin] 81 mg tablet,delayed release (DR/EC) 81 mg PO DAILY@1100 RF: 0 nitroglycerin 0.4 mg tablet, sublingual 0.4 mg SUBLINGUAL Q5M PRN (Reason: chest pain) 30 Days Qty: 30 RF: 3 Fluarix Quad 8942-8865 (PF) 60 mcg (15 mcg x 4)/0.5 mL syringe 0.5 ml IM ONCE Qty: 0.5 RF: 0 potassium 75 mg Tablet 75 mg PO DAILY RF: 0 Mineral Complex Tablet 1 tab PO DAILY RF: 0 [id number] 200-5-0.8-400 mg Capsule 1 cap PO DAILY RF: 0 melatonin 1 mg Tablet 1 mg PO BEDTIME RF: 0 [place] See Rx Instructions .ROUTE .COMPLEX RF: 0 Discharge Orders: Discharge ED (Routine); Ordered 02/13/21 Ordered By: Keaton Mooney Referrals: Keyonna Canchola DO [Primary Care Provider] - 1-3 days Discharge Diet: Advance as tolerated Discharge Activity: Resume usual activity Patient Instructions: Acute Nausea and Vomiting (ED) Coding Level of Care Code ED Felting Machine Operator Helper for Jose Elkins
[2021-02-13 22:11] VITALS: BP 179/92; PULSE 64; O2SAT 97
[2021-02-13 22:32] VITALS: BP 172/92; PULSE 64; RESP 18; O2SAT 97
== END 2021-02-13 22:34 | disposition home or self-care (01) ==
PROVIDERS: Physician Assistant; Emergency Provider Emergency Medicine; PCP Family Medicine
DX: R11.0 Nausea (principal); Z79.82 Long term (current) use of aspirin; Z85.3 Personal history of malignant neoplasm of breast; I10 Essential (primary) hypertension; E78.2 Mixed hyperlipidemia
CPT/HCPCS: 70450; 80053; 81001; 83690; 84484; 85025; 87040; 93005; 96360; 99284; J7030

== ENCOUNTER 2021-03-10 08:35 | Outpatient (CLI) | payer MEDICARE, SELFPAY ==
--- NOTE | 2021-03-10 09:00 | MM_ITS ---
WS: [id number] LEFT DIGITAL MAMMOGRAPHY WITH CAD CLINICAL INFORMATION: HX OF BREAST CA HISTORY: COMPARISON: February 01, 2020 TECHNIQUE: views of the left breast were obtained. FINDINGS: The left breast is composed of extremely dense tissue, which can limit the detection of small underly ing mass lesions. Punctate and lucent centered calcifications. Stable 14 mm nodule adjacent to the le ft nipple with long-term stability. No suspicious focal mass, asymmetry, calcifications, or architectural distortion. No evidence of paige gnancy. MM/[place] [id number] IMPRESSION: BI-RADS: 2-Benign FOLLOW UP: 1 Year Follow-up Recommend return to annual diagnostic mammography.
== END 2021-03-10 08:36 | disposition home or self-care (01) ==
LOC: RADSHAW 08:37
PROVIDERS: PCP Family Medicine; Visit Provider Family Medicine
DX: Z85.3 Personal history of malignant neoplasm of breast (principal)
CPT/HCPCS: 77065

== ENCOUNTER → 2021-07-22 02:53 | Outpatient (BNVA) | payer MEDICARE, SELFPAY | PROVIDERS: PCP Family Medicine; Visit Provider Family Medicine | DX: Z00.00 Encounter for general adult medical examination without abnormal findings (principal); Z13.6 Encounter for screening for cardiovascular disorders; I10 Essential (primary) hypertension | CPT/HCPCS: 80053; 80061; 85025 ==

== ENCOUNTER 2022-05-27 10:07 | Outpatient (CLI) | payer MEDICARE, SELFPAY ==
--- NOTE | 2022-05-27 10:16 | MM_ITS ---
WS: [id number] DIAGNOSTIC LEFT DIGITAL TOMOSYNTHESIS MAMMOGRAPHY WITH CAD. HISTORY: HX OF BREAST CA, RT mastectomy. COMPARISON: 03/10/2021, 02/01/2020 and 01/05/2019 Technique: CC, MLO and ML views. Breast composition: The breasts are almost entirely fatty. Long-term stability of a lobulated 15 x 1 0 mm mass in the anterior LEFT breast near the nipple. There are additional benign calcifications. Ot herwise no suspicious mass or distortion. MM/[place] [id number] IMPRESSION: BI-RADS: 2-Benign FOLLOW UP: 1 Year Follow-up
== END 2022-05-27 10:08 | disposition home or self-care (01) ==
PROVIDERS: PCP Family Medicine; Visit Provider Family Medicine
DX: Z85.3 Personal history of malignant neoplasm of breast (principal); Z90.11 Acquired absence of right breast and nipple
CPT/HCPCS: 77061; G0279

== ENCOUNTER → 2022-10-01 14:37 | Outpatient (BNVA) | payer MEDICARE, SELFPAY | PROVIDERS: PCP Family Medicine; Visit Provider Family Medicine | DX: Z13.6 Encounter for screening for cardiovascular disorders (principal); F41.9 Anxiety disorder, unspecified; Z86.39 Personal history of other endocrine, nutritional and metabolic disease; Z79.899 Other long term (current) drug therapy | CPT/HCPCS: 80053; 80061; 81003; 82306; 84443; 85025 ==

== ENCOUNTER → 2022-11-23 13:27 | Outpatient (BNVA) | payer MEDICARE, SELFPAY | PROVIDERS: PCP Family Medicine; Referring Provider Family Medicine; Visit Provider Specialist | DX: M17.0 Bilateral primary osteoarthritis of knee (principal) | CPT/HCPCS: 20610; 73560; 73565; 99204; J7318 ==

== ENCOUNTER 2023-01-31 16:58 | Emergency (ER) | payer MEDICARE, SELFPAY ==
[2023-01-31 17:58] VITALS: BP 143/73; PULSE 65; RESP 16; TEMP 36.7; O2SAT 96; BMI 29.7
--- NOTE | 2023-01-31 18:24 | XRR_ITS ---
PROCEDURE INFORMATION: Exam: XR Left Knee Exam date and time: 01/31/2023 6:37 PM Age: 77 years old Clinical indication: Pain; Knee; Left TECHNIQUE: Imaging protocol: Radiologic exam of the left knee. Views: 3 views. COMPARISON: No relevant prior studies available. FINDINGS: Bones/joints: There is generalized osteopenia with no fractures or dislocations. The lateral joint compartment is preserved. There is narrowing and degenerative disease noted in the medial joint compartment. There is a small suprapatellar effusion. The proximal tibiofibular joint space is preserved. Soft tissues: Normal. XR/XR knee LT 3V* [id number] IMPRESSION: Small suprapatellar effusion with no fractures noted.
[2023-01-31 19:32] VITALS: BP 155/81; PULSE 61; TEMP 36.6; O2SAT 97
[2023-01-31 20:18] VITALS: BP 154/86; PULSE 59; O2SAT 98
--- NOTE | 2023-01-31 20:19 | W.ED.EXTPRO ---
HPI - Extremity Problem General: Chief complaint: Extremity Injury, Lower Stated complaint: LT knee inj Time Seen by Provider: 01/31/23 20:00 Source: patient Mode of arrival: ambulatory Limitations: no limitations History of Present Illness: 77-year-old female states that she has had a long history of knee issues she has been told she may need a knee replacement states she got out of her car today and felt a pop in her left knee she states that she had a hard time walking since then. States pain sharp in nature rates it a 2 out of 10 currently it is much worse when she tries to ambulate. Denies any other injuries Associated symptoms: Deny chest pain, fever(s) or rash Review of Systems Const: Denies: fever(s) or chills ENMT: Denies: throat pain or dental pain Card: Denies: chest pain Resp: Denies: dyspnea GI: Denies: abdominal pain, nausea, vomiting or diarrhea Musc: Reports: extremity pain; Denies: neck pain or back pain Skin/Breast: Denies: rash Neuro: Denies: headache(s) PFSH ED PFSH: Medical History Abnormal cardiovascular stress test Breast cancer Colon polyps Dyslipidemia (high LDL; low HDL) Endometriosis Fatigue Hypertension Mixed hyperlipidemia Osteopenia Shortness of breath on exertion EKG was done today. The EKG showed normal sinus rhythm with a normal ST-T's. Normal NV and QRS duration. Swelling of lower leg Vitamin D deficiency Surgical History H/O dilation and curettage H/O: hysterectomy S/P appendectomy S/P bilateral oophorectomy S/P right mastectomy S/P tonsillectomy and adenoidectomy Family History Mother Cancer COLON CAD (coronary artery disease) Denies family history of Diabetes Clotting disorder Dementia Chronic kidney disease (CKD) Suicide Anesthesia complication Bleeding disorder Lung disease Stroke Social History Alcohol intake: never Substance/Drug Use: never Marital status: / Female Reproductive History: Para: 0 Spontaneous abortions: Yes Physical Exam Const: COMMON NORMALS: no acute distress and patient oriented x3 HENMT: COMMON NORMALS: normocephalic and atraumatic HEAD & SCALP: normocephalic and atraumatic Eye: COMMON NORMALS: conjunctivae normal CONJUNCTIVA: Yes conjunctivae normal Neck/C-Spine: COMMON NORMALS: full ROM Chest: COMMONS NORMALS: normal inspection of the chest Resp: COMMON NORMALS: normal respiratory effort Extremity: NARRATIVE EXTREMITY EXAM: Tenderness over left knee no obvious deformity no swelling Neuro: COMMON NORMALS: patient oriented x3 Psych: COMMON NORMALS: mental status grossly normal Skin: COMMON NORMALS: no rashes or lesions noted GENERAL SKIN EXAM: no rashes or lesions noted Course Vital Signs: Vital signs: Vital Signs Temperature 98 F 01/31/23 19:32 Pulse Rate 61 01/31/23 19:32 Respiratory Rate 16 01/31/23 17:58 Blood Pressure 155/81 01/31/23 19:32 Pulse Oximetry 97 01/31/23 19:32 Oxygen Delivery Me thod Room Air 01/31/23 19:32 MDM - Extremity (Nontraumatic) Medical Decision Making Patient presents here with knee pain likely a sprain did place her in a knee immobilizer she is to weight-bear as tolerated she is to follow-up with Dr. Hayes her orthopedist she is return if worsening. X-rays normal Medical Records I reviewed the patient's medical records. Lab Data I reviewed the patient's lab results. Radiology Impressions Knee X-Ray 01/31/23 18:24 IMPRESSION: Small suprapatellar effusion with no fractures noted. Discharge Plan Discharge Patient Disposition: Home Clinical Impression: Left knee sprain Condition: Stable Prescriptions: New Naprosyn 500 mg tablet 500 mg PO BID PRN (Reason: pain) Qty: 20 0RF No Action vitamin E (dl, acetate) 100 unit capsule 100 unit PO DAILY@1100 cholecalciferol (vitamin D3) 2,000 unit tablet 2,000 unit PO DAILY@1100 B Complex Plus Vitamin C 94-59-39-5-300 mg capsule 1 cap PO DAILY@1100 multivitamin Tablet 1 tab PO DAILY@1100 red yeast rice 600 mg capsule 1,200 mg PO DAILY nitroglycerin 0.4 mg tablet, sublingual 0.4 mg SUBLINGUAL Q5M PRN (Reason: chest pain) 30 Days Qty: 30 3RF Rx Instructions: until response; do not exceed 3 doses per episode potassium gluconate 595 mg (99 mg) tablet 595 mg PO DAILY Mineral Complex Tablet 1 tab PO DAILY [id number]-[id number] 200-5-0.8-400 mg Capsule 1 cap PO DAILY Silver [place] See Rx Instructions .ROUTE .COMPLEX Rx Instructions: USE DIRECTED, 3-4 SPRAYS IN THE MORNING AND 3-4 SPRAYS IN THE EVENING Discharge Orders: Discharge ED (Routine); Ordered 01/31/23 Ordered By: Keaton Mooney Referrals: Angelique Wyatt MD [Physician] - 1-3 days Keyonna Canchola DO [Primary Care Provider] - Discharge Diet: Advance as tolerated Discharge Activity: Use walker/crutches as instructed Patient Instructions: Knee Sprain (ED) Coding Level of Care Code ED Audio Visual Secretary for Jose Elkins
[2023-01-31 20:24] VITALS: PULSE 84; RESP 18; O2SAT 97
[2023-01-31 20:53] VITALS: PULSE 81; RESP 17; O2SAT 93
--- NOTE | 2023-01-31 20:54 | PC.NURSE ---
per Dr. Keaton Mooney to send 500 mg of naproxen home with pt. pt requested to take tab at home.
[2023-01-31] MEDS: naproxen 500 mg Tablet PO (20:56)
--- NOTE | 2023-02-01 08:27 | DCPLANNER ---
Addendum entered by Delma Mooney 02/01/23 15:52: Patient had an appointment scheduled for 02.01.23 at ortho - patient did attend appointment. Original Note: accounts manager had message to schedule a follow up appointment for patient with ortho. accounts manager sent patients information to the front office staff at ortho. Patients information will be printed and reviewed. Clinic will call patient with appointment information.
== END 2023-01-31 21:09 | disposition home or self-care (01) ==
PROVIDERS: Emergency Provider Emergency Medicine; PCP Family Medicine
DX: S83.92XA Sprain of unspecified site of left knee, initial encounter (principal); M25.462 Effusion, left knee; Z85.3 Personal history of malignant neoplasm of breast; I10 Essential (primary) hypertension; E78.2 Mixed hyperlipidemia; X58.XXXA Exposure to other specified factors, initial encounter
CPT/HCPCS: 29530; 73562; 99283

== ENCOUNTER → 2023-02-01 12:57 | Outpatient (BNVA) | payer MEDICARE, SELFPAY | PROVIDERS: PCP Family Medicine; Referring Provider Emergency Medicine; Visit Provider Specialist | DX: S83.92XA Sprain of unspecified site of left knee, initial encounter (principal); X58.XXXA Exposure to other specified factors, initial encounter | CPT/HCPCS: 99213 ==

== ENCOUNTER 2023-02-09 06:39 | Outpatient (CLI) | payer MEDICARE, SELFPAY ==
--- NOTE | 2023-02-09 07:00 | CT_ITS ---
WS: [id number] CT LEFT KNEE, NONCONTRAST TECHNIQUE: Noncontrast CT of the LEFT knee to include the LEFT hip and ankle. CLINICAL INFORMATION: left knee pain COMPARISON: None. DLP: 1002.[address] scans at [facility] use at least one of these dose optimization techniques: automated e xposure control; mA and/or kV adjustment per patient size (includes targeted exams where dose is matc hed to clinical indication); or iterative reconstruction. FINDINGS: Osteopenia. 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 Moderate tricompartmenta l arthritis. Hypertrophic patella. Small suprapatellar effusion. Hypertrophic changes along the joint line. Sigmoid diverticulosis. CT/CT knee LT [facility] [employer] [facility] IMPRESSION: Images obtained for preoperative purposes.
== END 2023-02-09 06:40 | disposition home or self-care (01) ==
LOC: RAD 06:45
PROVIDERS: PCP Family Medicine; Visit Provider Specialist
DX: M25.562 Pain in left knee (principal)
CPT/HCPCS: 73700

== ENCOUNTER → 2023-02-25 09:28 | Outpatient (BNVA) | payer MEDICARE, SELFPAY | PROVIDERS: PCP Family Medicine; Visit Provider Specialist | DX: M17.11 Unilateral primary osteoarthritis, right knee (principal) | CPT/HCPCS: 20610; 99213; J1100; J2795; J3301 ==

== ENCOUNTER → 2023-03-10 10:24 | Outpatient (BNVA) | payer MEDICARE, SELFPAY | PROVIDERS: PCP Family Medicine; Visit Provider Specialist | DX: S83.92XA Sprain of unspecified site of left knee, initial encounter (principal); X58.XXXA Exposure to other specified factors, initial encounter; M17.12 Unilateral primary osteoarthritis, left knee | CPT/HCPCS: 36415; 80053; 83036; 85025; 99214 ==

== ENCOUNTER → 2023-05-20 10:45 | Outpatient (BNVA) | payer MEDICARE, SELFPAY | PROVIDERS: PCP Family Medicine; Visit Provider Internal Medicine Cardiovascular Disease | DX: R94.39 Abnormal result of other cardiovascular function study (principal); E78.5 Hyperlipidemia, unspecified; I10 Essential (primary) hypertension; R53.83 Other fatigue | CPT/HCPCS: 99214 ==

== ENCOUNTER 2023-06-10 12:09 | Outpatient (RCR) | payer MEDICARE, SELFPAY | END 2023-06-10 23:59 | disposition home or self-care (01) | LOC: SPT 12:09 | PROVIDERS: PCP Family Medicine; Visit Provider Orthopaedic Surgery | DX: Z47.1 Aftercare following joint replacement surgery (principal); Z96.652 Presence of left artificial knee joint | CPT/HCPCS: 97110; 97161 ==

== ENCOUNTER 2023-06-14 15:26 | Outpatient (RCR) | payer MEDICARE, SELFPAY | END 2023-07-11 23:59 | disposition home or self-care (01) | LOC: SPT 15:26 | PROVIDERS: PCP Family Medicine; Visit Provider Orthopaedic Surgery | DX: Z47.1 Aftercare following joint replacement surgery (principal); Z96.652 Presence of left artificial knee joint | CPT/HCPCS: 97110 ==

== ENCOUNTER 2023-07-12 06:00 | Outpatient (RCR) | payer MEDICARE, SELFPAY | END 2023-08-11 23:59 | disposition home or self-care (01) | LOC: SPT 06:00 | PROVIDERS: PCP Family Medicine; Visit Provider Orthopaedic Surgery | DX: Z98.890 Other specified postprocedural states (principal) | CPT/HCPCS: 97110; G0283 ==

== ENCOUNTER 2023-07-14 09:01 | Outpatient (CLI) | payer MEDICARE, SELFPAY ==
--- NOTE | 2023-07-14 09:14 | MM_ITS ---
WS: [id number] Left breast diagnostic 3D tomosynthesis digital mammogram, 07/14/2023 Clinical Data: HX:CA/RT MST Comparison: 05/27/2022, 03/10/2021, 02/01/2020, 12/16/2018, 12/21/2017, 12/19/2015, 02/27/2014, 03/01/2013, , 12/13/2008, 11/24/2007, 11/02/2006. Findings: The left breast shows fat replacement. There are no spiculated masses nor clustered calcifications. T here are no secondary signs of carcinoma. Impression: 1. Negative left breast mammogram unchanged. 2. Recommend annual left breast mammogram. MM/[place] [id number] BIRADS: 1-Negative FOLLOW UP: 1 Year Follow-up The CAD wrapping checker was used.
== END 2023-07-14 09:02 | disposition home or self-care (01) ==
LOC: RAD 09:01
PROVIDERS: PCP Family Medicine; Visit Provider Family Medicine
DX: Z85.3 Personal history of malignant neoplasm of breast (principal); Z90.11 Acquired absence of right breast and nipple
CPT/HCPCS: 77061; G0279

== ENCOUNTER 2023-08-12 06:00 | Outpatient (RCR) | payer MEDICARE, SELFPAY | END 2023-09-09 23:59 | disposition home or self-care (01) | LOC: SPT 06:00 | PROVIDERS: PCP Family Medicine; Visit Provider Orthopaedic Surgery | DX: Z96.652 Presence of left artificial knee joint (principal); Z47.1 Aftercare following joint replacement surgery | CPT/HCPCS: 97110; G0283 ==

== ENCOUNTER 2023-09-02 19:48 | Emergency (ER) | payer MEDICARE, SELFPAY ==
[2023-09-02 19:49] VITALS: BP 181/81; PULSE 71; RESP 20; TEMP 37.1; O2SAT 98; BMI 30.9
--- NOTE | 2023-09-02 20:08 | XRR_ITS ---
PROCEDURE INFORMATION: Exam: XR Right Knee Exam date and time: 09/02/2023 8:36 PM Age: 78 years old Clinical indication: Injury or trauma; Other: Popped knee while turning; Other: Swollen; Additional info: Trauma/pain TECHNIQUE: Imaging protocol: Radiologic exam of the right knee. Views: 4 or more views. COMPARISON: CR XR knees AP WB w BI lmt ORTH 11/23/2022 1:33 PM FINDINGS: Bones/joints: Mild degenerative disease of the knee joint with marginal osteophytes. There is demineralization of the visualized bones, limiting sensitivity for nondisplaced fracture. There is a mild knee joint effusion. There is neutral patellar tracking. Soft tissues: Normal. Vasculature: There are vascular calcifications. XR/XR knee RT 4V [id number] IMPRESSION: Linear sclerotic line in the proximal lateral tibial plateau suspicious for nondisplaced fracture with associated knee joint effusion.
--- NOTE | 2023-09-02 20:50 | W.ED.EXTPRO ---
HPI - Extremity Problem General: Chief complaint: Extremity Injury, Lower Stated complaint: right knee pain Time Seen by Provider: 09/02/23 19:55 History of Present Illness: 78-year-old female presents to the emergency department with complaints of right knee pain. She states she was sitting when she attempted to stand up she twisted her right knee and felt a pop and immediate pain. She states she is unable to stand due to the pain. She states she is recently had a left knee replacement at the orthopedic physician in [facility]. She states her current pain is a 10 out of 10. She denies numbness or tingling. She states she has had chronic pain in her right knee as she has no cartilage and has been advised that she needed to have a knee replacement and has not had it completed as of yet. She states that any attempt at standing makes her knee pain worse. Review of Systems General: Reports: 10 or more systems reviewed and unremarkable except in HPI and below Musc: Reports: extremity pain and joint pain [facility] ED PFSH: Medical History (Updated 09/02/23 @ 21:28 by Horacio Baird MD) Abnormal cardiovascular stress test Dyslipidemia (high LDL; low HDL) Hypertension Fatigue Shortness of breath on exertion EKG was done today. The EKG showed normal sinus rhythm with a normal ST-T's. Normal OK and QRS duration. Swelling of lower leg Endometriosis Colon polyps Osteopenia Vitamin D deficiency Breast cancer Mixed hyperlipidemia Surgical History S/P appendectomy S/P tonsillectomy and adenoidectomy H/O: hysterectomy S/P bilateral oophorectomy S/P right mastectomy H/O dilation and curettage Family History Mother Cancer COLON CAD (coronary artery disease) Denies family history of Diabetes Clotting disorder Dementia Chronic kidney disease (CKD) Suicide Anesthesia complication Bleeding disorder Lung disease Stroke Social History Alcohol intake: never Substance/Drug Use: never Marital status: / Female Reproductive History: Para: 0 Spontaneous abortions: Yes Physical Exam Narrative: EXAM NARRATIVE: Constitutional: the patient appears well nourished and of normal development. Vital signs as documented. No acute distress at present. Alert and oriented-to person, place, time and situation. Head, eyes, ears, nose, mouth, throat: Normocephalic, atraumatic. Pupils-equal, round, reactive to light. No scleral icterus. Normal-appearing external ears. Normal appearing nasal turbinates, no drainage. No obvious oral lesions, posterior oropharynx without erythema or exudates. Neck: Supple, trachea is midline, no lymphadenopathy, no jugular venous distension, thyromegaly, or carotid bruits. Carotid upstrokes are brisk bilaterally. Lungs: clear to auscultation to all lung cardneas. Symmetrical rise and fall of chest, no obvious signs of increased work of breathing at present. Cardiac: Regular rate and rhythm, positive S1, S2. No murmurs, rubs or gallops that I can appreciate Abdomen: Soft, non-tender to palpation, normal active bowel sounds to all quadrants. No palpable masses, no organomegaly and abdominal bruits. Extremities: 2+ pulses in the upper extremities that are equal bilaterally, 2+ pulses in the lower extremities that are equal bilaterally. Non-edematous. Tenderness to palpation to the lateral superior right knee area. Any attempts at flexion increases the patient's pain. She is nontender to the popliteal space. She has normal sensation to all extremities. She has no difficulties with motion to the remaining extremities. Skin: Warm, dry, intact. Course ED course: I reviewed the radiographic examination and determined the need for fracture stabilization via splint. A right posterior long-leg splint was utilized. The splint was ordered and placed by the nursing staff, under the direct supervision of myself (ER Physician. The patient's neurovascular status was evaluated and was intact before and after the application of the splint. Capillary refill was less than 3 seconds before and after the application. The patient was splinted and the most appropriate anatomical and functional position at that time. Anticipatory guidance, return precautions and red flag precautions were provided to the patient and support person. The patient/support person was advised to contact the patient's primary care provider or Orthopedic provider to make a follow-up appointment for additional evaluation and treatment within the next 3-5 days. Reevaluation(s): Reevaluation #1: Reevaluation of the patient's right knee pain post IV morphine demonstrates improved pain control she states she has improved from a 10 to a 6 out of 10. She is requesting additional pain medications I will provide her an additional pain medication prior to having the nursing staff placed the leg splint. Time: 21:29 Vital Signs: Vital signs: Vital Signs Temperature 98.8 F 09/02/23 19:49 Pulse Rate 71 09/02/23 19:49 Respiratory Rate 20 H 09/02/23 19:49 Blood Pressure 181/81 09/02/23 19:49 Pulse Oximetry 98 09/02/23 19:49 MDM - Extremity (Nontraumatic) Medical Decision Making Physical exam completed and documented I will provide her p.o. and IV pain medication as well as a x-ray of her right knee. After review of the radiographic examination I have ordered a long-leg posterior splint to be applied as well as crutches and will discharge the patient with orthopedic follow-up. She currently takes hydrocodone 5/325 at home and I will have her continue to take that medication for pain relief. Medical Records I reviewed the patient's medical records. Lab Data Radiology Impressions Knee X-Ray 09/02/23 20:08 IMPRESSION: Linear sclerotic line in the proximal lateral tibial plateau suspicious for nondisplaced fracture with associated knee joint effusion. All radiology interpretation(s) finalized by discharge Discharge Plan Discharge Patient Disposition: Home Clinical Impression: Closed fracture of tibial plateau, Acute pain of right knee Condition: Stable Prescriptions: No Action vitamin E (dl, acetate) 100 unit capsule 100 unit PO DAILY@1100 cholecalciferol (vitamin D3) 2,000 unit tablet 2,000 unit PO DAILY@1100 B Complex Plus Vitamin C [id number] mg capsule 1 cap PO DAILY@1100 red yeast rice 600 mg capsule 1,200 mg PO DAILY nitroglycerin 0.4 mg tablet, sublingual 0.4 mg SUBLINGUAL Q5M PRN (Reason: chest pain) 30 Days Qty: 30 3RF Rx Instructions: until response; do not exceed 3 doses per episode potassium gluconate 595 mg (99 mg) tablet 595 mg PO DAILY (DME) HINGED KNEE BRACE See Rx Instructions .Route .MEDSUPPLY Qty: 1 0RF Rx Instructions: As directed Curcumin 95 % powder miscellaneous Mineral Complex Tablet 1 tab PO DAILY [id number] 200-5-0.8-400 mg Capsule 1 cap PO DAILY Silver [place] See Rx Instructions .ROUTE .COMPLEX Rx Instructions: USE DIRECTED, 3-4 SPRAYS IN THE MORNING AND 3-4 SPRAYS IN THE EVENING Naprosyn 500 mg tablet 500 mg PO BID PRN (Reason: pain) Qty: 20 0RF Discharge Orders: Discharge ED (Routine); Ordered 09/02/23 Ordered By: Horacio Baird Referrals: Keyonna Canchola DO [Primary Care Provider] - Angelique Wyatt MD [Physician] - Discharge Diet: Usual diet Discharge Activity: Use walker/crutches as instructed Patient Instructions: Opioid Safety, Pain Management Activity Restrictions/Additional Instructions: Activity Restrictions/Additional Instructions: Thank you for choosing [facility] for your healthcare needs today. Please realize that you were seen in the Emergency Department and that we are providing you with an emergency medical screening exam and this may not be a complete and all inclusive of all the testing and or medical work-up that you may need to determine your ailment or severity of your illness. It is very important that you follow-up as instructed with your Primary care provider or Specialist for additional evaluation and to discuss your medical treatment plan. Coding Level of Care Code ED Director [employer]
[2023-09-02] MEDS: HYDROcodone-acetaminophen 10-325 mg Tablet 1 TAB PO (20:55)
[2023-09-02] MEDS: morphine 4 mg/mL SDV 1 mL IVP (20:56)
[2023-09-02] MEDS: ondansetron 2 mg/ML SDV 2 mL 4 MG IVP (20:56)
[2023-09-02] MEDS: HYDROmorphone 1 mg/mL INJ 1 mL 0.5 MG IVP (21:45)
[2023-09-02 22:28] VITALS: BP 150/64; PULSE 88; RESP 20; O2SAT 93
--- NOTE | 2023-09-03 12:03 | DCPLANNER ---
I rcvd a call from the patient on 09/03/23 at 11:50 am very concerned that she has not received a call from anyone about her MRI that Dr. Baird had verbally told her that she needs to get done today. I looked into the charting on this patient and noticed there was not an order for an MRI, but to only follow up with ortho in 3-5 days. Patient was calm ,but upset about this. I reassured patient that I would send referral to the ortho clinic and they would be the ones to contact her with that ortho appointment and then at the consultation the doctor will determine what type of imaging needs to be done to further evaluate the situation. Patient understood. I sent the referral at 11:57 for ortho to contact patient about a possible patella fracture.
== END 2023-09-02 22:57 | disposition home or self-care (01) ==
PROVIDERS: Emergency Provider Internal Medicine; PCP Family Medicine
DX: S82.141A Displaced bicondylar fracture of right tibia, initial encounter for closed fracture (principal); I10 Essential (primary) hypertension; Z85.3 Personal history of malignant neoplasm of breast; E78.2 Mixed hyperlipidemia; X50.1XXA Overexertion from prolonged static or awkward postures, initial encounter
CPT/HCPCS: 29505; 73564; 96374; 96375; 99284; E0114; J1170; J2270; J2405

== ENCOUNTER → 2023-09-07 08:51 | Outpatient (BNVA) | payer MEDICARE, SELFPAY | PROVIDERS: PCP Family Medicine; Referring Provider Internal Medicine; Visit Provider Orthopaedic Surgery | DX: M25.561 Pain in right knee (principal); Z96.652 Presence of left artificial knee joint | CPT/HCPCS: 99203 ==

== ENCOUNTER → 2023-10-07 14:07 | Outpatient (BNVA) | payer MEDICARE, SELFPAY | PROVIDERS: PCP Family Medicine; Visit Provider Orthopaedic Surgery | DX: S83.241A Other tear of medial meniscus, current injury, right knee, initial encounter (principal); X58.XXXA Exposure to other specified factors, initial encounter | CPT/HCPCS: 99213 ==

== ENCOUNTER → 2023-11-02 09:43 | Outpatient (BNVA) | payer MEDICARE, SELFPAY | PROVIDERS: PCP Family Medicine; Visit Provider Family Medicine | DX: Z13.6 Encounter for screening for cardiovascular disorders (principal); Z78.0 Asymptomatic menopausal state; Z00.00 Encounter for general adult medical examination without abnormal findings | CPT/HCPCS: 80053; 80061; 85025 ==

== ENCOUNTER 2023-11-05 14:24 | Outpatient (CLI) | payer MEDICARE, SELFPAY ==
--- NOTE | 2023-11-05 14:30 | XR_ITS ---
WS: [id number] DEXA (DUAL ENERGY X-RAY ABSORPTIOMETRY) Bone mineral density was performed using a [employer] machine. HISTORY: postmenopausal COMPARISON: 02/01/2020 Lumbar spine BMD (L1-L4): 1.028 g/cm2 T score: -1.3 Z score: -0.1 Total hip BMD: Left: 0.842 g/cm2. T score: -1.3 Z score: 0.2 Right: 0.818 g/cm2. T score: -1.5 Z score: 0.0 10 year probability of a major osteoporotic fracture is 34.8%. Compared to the prior study from 02/01/2020. Lumbar spine bone mineral density has decreased by 4.3%. Bilateral hips bone mineral density has decreased by 6.6%. IMPRESSION: OSTEOPENIA based upon the WHO classification for females. Significant decrease in bone mineral density within the lumbar spine and hips since the prior study.
== END 2023-11-05 14:25 | disposition home or self-care (01) ==
LOC: RAD 14:25
PROVIDERS: PCP Family Medicine; Visit Provider Family Medicine
DX: Z13.820 Encounter for screening for osteoporosis (principal); Z78.0 Asymptomatic menopausal state; M85.88 Other specified disorders of bone density and structure, other site
CPT/HCPCS: 77080

== ENCOUNTER → 2023-11-22 13:59 | Outpatient (BNVA) | payer MEDICARE, SELFPAY | PROVIDERS: PCP Family Medicine; Visit Provider Internal Medicine Cardiovascular Disease | DX: R94.39 Abnormal result of other cardiovascular function study (principal); E78.5 Hyperlipidemia, unspecified; R06.02 Shortness of breath; E78.2 Mixed hyperlipidemia | CPT/HCPCS: 99214 ==

== ENCOUNTER 2023-12-13 06:00 | Outpatient (RCR) | payer MEDICARE, SELFPAY | END 2024-01-09 23:59 | disposition home or self-care (01) | LOC: SPT 06:00 | PROVIDERS: PCP Family Medicine; Visit Provider Student in an Organized Health Care Education/Training Program | DX: M17.11 Unilateral primary osteoarthritis, right knee (principal) | CPT/HCPCS: 97110; 97140; 97161 ==

== ENCOUNTER 2024-01-10 06:00 | Outpatient (RCR) | payer MEDICARE, SELFPAY | END 2024-02-09 23:59 | disposition home or self-care (01) | LOC: SPT 06:00 | PROVIDERS: PCP Family Medicine; Visit Provider Student in an Organized Health Care Education/Training Program | DX: M17.11 Unilateral primary osteoarthritis, right knee (principal) | CPT/HCPCS: 97110 ==

== ENCOUNTER 2024-02-10 06:00 | Outpatient (RCR) | payer MEDICARE, SELFPAY | END 2024-03-11 23:59 | disposition home or self-care (01) | LOC: SPT 06:00 | PROVIDERS: PCP Family Medicine; Visit Provider Student in an Organized Health Care Education/Training Program | DX: M17.11 Unilateral primary osteoarthritis, right knee (principal) | CPT/HCPCS: 97110; 97140 ==

== ENCOUNTER 2024-03-12 06:00 | Outpatient (RCR) | payer MEDICARE, SELFPAY | END 2024-04-10 23:59 | disposition home or self-care (01) | LOC: SPT 06:00 | PROVIDERS: PCP Family Medicine; Visit Provider Student in an Organized Health Care Education/Training Program | DX: M17.11 Unilateral primary osteoarthritis, right knee (principal) | CPT/HCPCS: 97110; 97140 ==

== ENCOUNTER 2024-04-11 06:00 | Outpatient (RCR) | payer MEDICARE, SELFPAY | END 2024-05-09 09:31 | disposition home or self-care (01) | LOC: SPT 06:00 | PROVIDERS: PCP Family Medicine; Visit Provider Student in an Organized Health Care Education/Training Program | DX: M17.11 Unilateral primary osteoarthritis, right knee (principal) | CPT/HCPCS: 97110 ==

== ENCOUNTER 2024-04-25 11:19 | Outpatient (CLI) | payer MEDICARE, SELFPAY ==
--- NOTE | 2024-04-25 | US_ITS ---
WS: [id number] Right lower extremity venous Doppler, 04/25/2024 Clinical Data: PAIN IN RIGHT LOWER LIMB Comparison: None. Findings: The veins of the right lower extremity were examined. The veins examined where the posterior tibial vein, popliteal vein, superficial femoral vein, common femoral vein and greater saphenous vein. There was normal venous flow throughout. There is no evidence of deep venous thrombosis or obstructio n. Normal augmentation and compression occurred. US/ROR venous duplex LE RT Impression: Negative right lower extremity venous Doppler ultrasound.
== END 2024-04-25 11:20 | disposition home or self-care (01) ==
LOC: RADOUTREAD 04-26 11:20
PROVIDERS: PCP Family Medicine; Visit Provider Family Medicine
DX: M79.604 Pain in right leg (principal); M25.571 Pain in right ankle and joints of right foot; M79.661 Pain in right lower leg; M79.89 Other specified soft tissue disorders; G57.91 Unspecified mononeuropathy of right lower limb; M65.961 Unspecified synovitis and tenosynovitis, right lower leg
CPT/HCPCS: 99203

== ENCOUNTER → 2024-04-25 13:36 | Outpatient (BNVA) | payer MEDICARE, SELFPAY | PROVIDERS: PCP Family Medicine; Visit Provider Podiatrist Foot & Ankle Surgery | DX: M25.571 Pain in right ankle and joints of right foot (principal); M79.661 Pain in right lower leg; M79.89 Other specified soft tissue disorders; G57.91 Unspecified mononeuropathy of right lower limb; M65.961 Unspecified synovitis and tenosynovitis, right lower leg | CPT/HCPCS: 73610 ==

== ENCOUNTER → 2024-06-06 10:17 | Outpatient (BNVA) | payer MEDICARE, SELFPAY | PROVIDERS: PCP Family Medicine; Visit Provider Internal Medicine Cardiovascular Disease | DX: R06.02 Shortness of breath (principal); E78.2 Mixed hyperlipidemia; I10 Essential (primary) hypertension; R94.39 Abnormal result of other cardiovascular function study | CPT/HCPCS: 99214 ==

== ENCOUNTER 2024-06-19 13:28 | Outpatient (RCR) | payer MEDICARE, SELFPAY | END 2024-07-11 23:59 | disposition home or self-care (01) | LOC: SPT 13:28 | PROVIDERS: PCP Family Medicine; Visit Provider Family Medicine | DX: M76.811 Anterior tibial syndrome, right leg (principal) | CPT/HCPCS: 97110; 97140; 97161 ==

== ENCOUNTER 2024-07-12 06:00 | Outpatient (RCR) | payer MEDICARE, SELFPAY | END 2024-07-20 23:59 | disposition home or self-care (01) | LOC: SPT 06:00 | PROVIDERS: PCP Family Medicine; Visit Provider Family Medicine | DX: M76.811 Anterior tibial syndrome, right leg (principal) | CPT/HCPCS: 97110; 97140 ==

== ENCOUNTER 2024-07-26 09:17 | Outpatient (CLI) | payer MEDICARE, SELFPAY ==
--- NOTE | 2024-07-26 09:27 | MM_ITS ---
WS: [id number] DIAGNOSTIC LEFT DIGITAL TOMOSYNTHESIS MAMMOGRAPHY WITH CAD. HISTORY: HX OF BREAST CANCER COMPARISON: 12/21/2017, 01/05/2019, 07/14/2023 and 05/27/2022 Technique: CC, MLO and ML views. Breast composition: The breasts are almost entirely fatty. Long-term stability well circumscribed mass subareolar LEFT breast just medial and inferior to the ni pple. Mass measures 8 x 11 x 8 mm and has been present since 2018. Benign calcification. MM/MM diag LT tomosynthesis [id number] IMPRESSION: BI-RADS: 2 - Benign. FOLLOW UP: 1 Year Follow-up
== END 2024-07-26 09:18 | disposition home or self-care (01) ==
LOC: RAD 09:22
PROVIDERS: PCP Family Medicine; Visit Provider Family Medicine
DX: Z85.3 Personal history of malignant neoplasm of breast (principal); R92.312 Mammographic fatty tissue density, left breast; R92.1 Mammographic calcification found on diagnostic imaging of breast; N63.20 Unspecified lump in the left breast, unspecified quadrant
CPT/HCPCS: 77061; G0279

== ENCOUNTER → 2024-12-06 10:57 | Outpatient (BNVA) | payer MEDICARE, SELFPAY | PROVIDERS: PCP Family Medicine; Visit Provider Nurse Practitioner Family | DX: R06.02 Shortness of breath (principal); I10 Essential (primary) hypertension; E78.2 Mixed hyperlipidemia; R94.39 Abnormal result of other cardiovascular function study | CPT/HCPCS: 99213 ==